=== PATIENT | male | born 1955 | race Caucasian/White ===

== ENCOUNTER 2017-09-28 06:58 | Day surgery (SDC) | payer BC ==
[~2017-09-28 06:58] MED LIST: Lactated Ringers 1,000 ML IV SCH
[2017-09-28] MEDS ORDERED: Propofol 200 MG/20 ML SDV ONE (07:11)
[2017-09-28] MEDS ORDERED: Lidocaine 2% 5 ML SDV ONE (07:11)
--- NOTE | 2017-09-28 08:09 | PCM.PREANE ---
Preanesthetic Assessment - Anesthesia/Transfusion/Family Hx Anesthesia History: Prior Anesthesia Without Reaction Family History of Anesthesia Reaction: No Transfusion History: No Prior Transfusion(s) Intubation History: Unknown - Review of Systems General: No Symptoms Pulmonary: No Symptoms Cardiovascular: No Symptoms Gastrointestinal: Other (screening colonoscopy) Neurological: No Symptoms Other: Reports: None - Physical Assessment Height: 1.8 m Weight: 84.368 kg ASA Class: 2 Mental Status: Alert & Oriented x3 Airway Class: Mallampati = 2 Dentition: Reports: Normal Dentition, [place] Soapstone(s), Broken Tooth/Teeth (upper left incisor), Missing Tooth/Teeth (upper left incisor) Thyro-Mental Finger Breadths: 3 Mouth Opening Finger Breadths: 2 ROM/Head Extension: Full Lungs: Clear to Auscultation, Normal Respiratory Effort Cardiovascular: Regular Rate, Regular Rhythm - Allergies Allergies/Adverse Reactions: Allergies Allergy/AdvReac Type Severity Reaction Status Date / Time No Known Allergies Allergy Verified 09/23/17 10:44 - Blood Blood Available: No - Anesthesia Plan Pre-Op Medication Ordered: None - Acknowledgements Anesthesia Type Planned: MAC Pt an Appropriate Candidate for the Planned Anesthesia: Yes Alternatives and Risks of Anesthesia Discussed w Pt/Guardian: Yes Pt/Guardian Understands and Agrees with Anesthesia Plan: Yes PreAnesthesia Questionnaire - Past Health History Medical/Surgical History: Denies Medical/Surgical History Musculoskeletal History: Reports: Fracture Other Musculoskeletal History: hx fx rt leg Neurological History: Reports: Concussion Psychiatric History: Reports: Other (See Below) (forgetfulness) Dermatologic History: Reports: Other (See Below) (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) - Past Surgical History Head Surgeries/Procedures: Reports: None Dermatological Surgical History: Reports: Skin Graft (to chest, back of his arms and right shoulder) - SUBSTANCE USE Smoking Status *Q: Never Smoker Recreational Drug Use History: No - HOME MEDS Home Medications: Home Meds Ibuprofen 2 tab PO ASDIRECTED PRN 09/23/17 [History] Ibuprofen/Diphenhydramine Cit [Advil Pm Caplet] 2 tab PO BEDTIME 09/23/17 [ History] - CURRENT (IN HOUSE) MEDS Current Meds: Current Medications Lactated Ringer's (Ringers, Lactated) 1,000 mls @ 125 mls/hr IV ASDIRECTED PERRY Last Admin: 09/28/17 07:42 Dose: 125 mls/hr Discontinued Medications Lidocaine (Xylocaine-Mpf 2%) Confirm Administered Dose 5 ml .ROUTE .STK-MED ONE Stop: 09/28/17 07:12 Propofol (Diprivan 20 Ml) Confirm Administered Dose 400 mg .ROUTE .STK-MED ONE Stop: 09/28/17 07:12
--- NOTE | 2017-09-28 09:12 | PCM.OPNOTE ---
- General Post-Op/Procedure Note Date of Surgery/Procedure: 09/28/17 Operative Procedure(s): colonoscope Findings: see dict [id number] Pre Op Diagnosis: scrn colonoscopy Post-Op Diagnosis: hemorrhoid Anesthesia Technique: Moderate Sedation Primary Surgeon: Lei Abad Complications: None Condition: Good
[2017-09-28 11:15] VITALS: BP 106/66
--- NOTE | 2017-09-28 13:34 | OR ---
SURGEON: Lei Abad MD DATE OF PROCEDURE: 09/28/2017 PREOPERATIVE DIAGNOSIS: Screening colonoscopy. POSTOPERATIVE DIAGNOSIS: Hemorrhoids. FINDINGS: 1. The patient is easily sedated with [employer]ER and Diprivan. The patient is soundly snoring. 2. Bowel prep was average with some liquid stool, no semi-formed stool. 3. The patient's colon rather is straight forward. Cecum indicated by ileocecal fold, one-to-one indentation, and appendiceal orifice, and light emittance. Mucosa examined upon scope pulling out. The patient does not have diverticulosis, inflammation, stricture, ulceration, polyp, mass, growth, inflammation, polyp, none of those. The patient has mild internal hemorrhoid. No external hemorrhoids. The patient would benefit from a repeat colonoscopy 10 years from today if clinically indicated otherwise. PROCEDURE IN DETAIL: The patient was taken to the endoscopy room. A time out was called, patient identified, and procedure identified. Diprivan was then administrated. Patient went from awake to sleep, hearing doctor talking or door closing is normal. Perineum inspection and digital examination were then performed. A well- lubricated colonoscope was gently inserted through the rectum, advanced past the rectosigmoid junction, the descending colon, splenic flexure, transverse colon, hepatic flexure, ascending colon, arrived to the cecum. Cecum was identified as dictated in the finding. Then the scope was carefully withdrawn while attention was paid to the mucosal surface for any abnormality. Air will be sucked out during the scope withdrawal. At the rectum, retroflexed to examine any rectal diseases, fistula or hemorrhoids. Patient tolerated procedure well. There were no intraoperative complications, and Dr. Abad was present throughout the whole procedure. AMANDO / SOLIS /[id number]
== END 2017-09-28 09:45 | disposition home or self-care (01) ==
LOC: MW.SDS 06:58
PROVIDERS: ATTEND Surgery
DX: Z12.11 Encounter for screening for malignant neoplasm of colon (principal); K64.8 Other hemorrhoids; R68.89 Other general symptoms and signs
CPT/HCPCS: 45378; J7120; J2704